=== PATIENT | male | born 1990 | race Two or more races ===

== ENCOUNTER 2022-08-21 16:39 | Emergency (ER) | payer OTHER ==
[~2022-08-21] VITALS: Ht 182.9 cm; Wt 97.8 kg
[2022-08-21 18:55] VITALS: BP 123/69
[2022-08-21] MEDS ORDERED: CEPH-510 PO (19:25)
[2022-08-21] MEDS ORDERED: TETANUS-DIPTH-ACEL PERTUSSIS 0.5ML SYR Tdap IM ONE (19:30)
== END 2022-08-21 20:02 | disposition home or self-care (01) ==
LOC: ER 16:41
DX: S91.331A Puncture wound without foreign body, right foot, initial encounter (principal); Z79.899 Other long term (current) drug therapy; W45.0XXA Nail entering through skin, initial encounter; Y93.89 Activity, other specified; Y92.89 Other specified places as the place of occurrence of the external cause; Y99.8 Other external cause status
CPT/HCPCS: 90471; 90715